=== PATIENT | female | born 1950 | race Caucasian/White ===

== ENCOUNTER 2021-03-30 15:02 | Emergency (ER) | payer MEDICARE, MEDICAID ==
--- NOTE | 2021-03-30 15:37 | EDM.PDOC ---
ED HPI GENERAL MEDICAL PROBLEM - General Chief Complaint: Neurological Problem Stated Complaint: FELL Time Seen by Provider: 03/30/21 15:37 Source of Information: Reports: Patient, EMS, Alf Records History Limitations: Reports: Altered Mental Status - History of Present Illness INITIAL COMMENTS - FREE TEXT/NARRATIVE: Nathalie, 71-year-old female, presents via [place] ambulance from the [facility] She is a resident of the [facility] in [facility] and experienced a fall striking her right forehead this morning. Laceration was sustained and she was initially Steri-Stripped and was planned to be seen at the [facility]. For some reason she was then transferred via [facility] service to the [facility] in [place] for evaluation. While she was there she had an episode of altered sensorium/unresponsiveness and it was decided that she needed to be sent to the emergency department for further work-up and care. When she arrived here she was conversive, overall friendly although somewhat hesitant to any of my suggestions and/or comments for testing and evaluation. She denies any other specific issues other than the fall striking her head being of a new circumstance. Onset: Today - Related Data Allergies Allergy/AdvReac Type Severity Reaction Status Date / Time acetaminophen Allergy Cannot Verified 03/30/21 15:47 [From Juan] Remember codeine Allergy Cannot Verified 03/30/21 15:47 Remember morphine Allergy Cannot Verified 03/30/21 15:47 Remember Penicillins Allergy Cannot Verified 03/30/21 15:47 Remember propoxyphene Allergy Cannot Verified 03/30/21 15:47 [From Juan] Remember Home Meds: Home Meds Acetaminophen [Pain Relief] 500 mg PO BID 03/30/21 [History] Albuterol Sulfate [Albuterol Sulfate HFA] 2 puff INH Q6H PRN 03/30/21 [History] Aspirin [Aspirin EC] 81 mg PO DAILY 03/30/21 [History] Benzonatate [Tessalon Perle] 100 mg PO TID PRN 03/30/21 [History] Biotin 10 mg PO DAILY 03/30/21 [History] Bisacodyl [Gentle Laxative] 10 mg RECTAL DAILY PRN 03/30/21 [History] Calcium Carbonate/Vitamin D3 [Calcium Carbonate/Vitamin D 600 MG-200 Unit] 1 tab PO QAM 03/30/21 [History] ClonazePAM [KlonoPIN] 0.5 mg PO TID 03/30/21 [History] DULoxetine [Cymbalta] 60 mg PO BID 03/30/21 [History] Dextran 70/Hypromellose [Artificial Tears] 1 drop EYEBOTH QID PRN 03/30/21 [History] Diclofenac Sodium [Voltaren 1% Gel] 2 gm TOP QID PRN 03/30/21 [History] Divalproex Sodium [Depakote ER] 1,000 mg PO BEDTIME 03/30/21 [History] Fluticasone Propionate [Flonase] 2 sprays NASBOTH DAILY 03/30/21 [History] Gabapentin [Neurontin] 600 mg PO BID 03/30/21 [History] Lactulose [Chronulac] 30 ml PO DAILY 03/30/21 [History] Loratadine [Claritin] 10 mg PO DAILY PRN 03/30/21 [History] Magnesium Hydroxide [Milk of Magnesia] 30 ml PO DAILY PRN 03/30/21 [History] Melatonin 10 mg PO BEDTIME 03/30/21 [History] Multivitamin 1 tab PO DAILY 03/30/21 [History] OLANZapine [ZyPREXA] 10 mg PO BID 03/30/21 [History] Paliperidone Palmitate [Invega Sustenna] 117 mg IM ASDIRECTED 03/30/21 [History] Paliperidone [Invega] 3 mg PO DAILY 03/30/21 [History] Pantoprazole Sodium [Protonix] 40 mg PO DAILY 03/30/21 [History] Potassium Chloride [Klor-Con 10] 10 meq PO DAILY 03/30/21 [History] Simvastatin [Zocor] 20 mg PO BEDTIME 03/30/21 [History] Sodium Chloride 2 gm PO BID 03/30/21 [History] polyethylene glycoL 3350 [MiraLAX] 17 gm PO DAILY PRN 03/30/21 [History] Past Medical History Psychiatric History: Reports: Other (See Below) (Please see paperwork provided as no extensive history is available from her.) - Past Surgical History Head Surgeries/Procedures: Reports: Craniotomy, Other (See Below) (buur hole) Social & Family History - Family History Family Medical History: No Pertinent Family History ED ROS GENERAL - Review of Systems Review Of Systems: Unable To Obtain Reason Not Obtained: Unable to verify accuracy from her secondary of her psychiatric s ED EXAM, GENERAL - Physical Exam Exam: See Below Free Text/Narrative:: Alert to surroundings, not fully sure as to why she is in the hospital. HEENT shows a laceration 3 cm to the right upper eyebrow that has been Steri- Stripped with no active bleeding/mild oozing with positioning. PERRLA no icterus no injection. EOM intact. Nondilated funduscopy is benign for any detachments or hemorrhage. She has ceruminosis bilateral which she told me before I even looked "full of wax" She has pink moist mucous membranes. Her neck is soft supple there is no tenderness she has limited range of motion secondary of kyphosis and age but denies any tenderness to palpation or to motion. I do not appreciate any bruit. Breath sounds are somewhat diminished. Cardiac is S1 is 2 there is a soft grade 1 systolic murmur best heard at the base. Abdomen is soft bowel sounds present she has mild superficial tenderness in the left lower quadrant with no obvious injury or redness. There is no pelvic tenderness. She is able to move her lower extremities with no difficulty skin is warm and dry capillary refill 3 seconds. Course - Vital Signs Last Recorded V/S: Last Vital Signs Temp 98.3 F 03/30/21 15:36 Pulse 91 03/30/21 15:36 Resp 18 03/30/21 15:36 BP 127/68 03/30/21 15:36 Pulse Ox 93 L 03/30/21 15:36 - Orders/Labs/Meds Labs: Laboratory Tests 03/30/21 03/30/21 03/30/21 Range/Units 14:53 14:53 17:04 WBC 8.57 (5.00-10.00) 10^3/uL RBC 4.34 (3.80-5.50) 10^6/uL Hgb 13.0 (12.0-16.0) g/dL Hct 39.3 (37.0-47.0) % MCV 90.6 (82.0-92.0) fL MCH 30.0 (27.0-31.0) pg MCHC 33.1 (32.0-36.0) g/dL RDW 13.1 (11.5-14.5) % Plt Count 300 (150-400) 10^3/uL MPV 10.2 (7.4-10.4) fL Immature Gran % (Auto) 0.4 (0.0-5.0) % Neut % (Auto) 70.7 H (50.0-70.0) % Lymph % (Auto) 17.2 L (20.0-40.0) % Preston % (Auto) 11.3 H (2.0-8.0) % Eos % (Auto) 0.0 L (1.0-3.0) % Baso % (Auto) 0.4 (0.0-1.0) % Neut # (Auto) 6.07 (2.50-7.00) 10^3/uL Lymph # (Auto) 1.47 (1.00-4.00) 10^3/uL Preston # (Auto) 0.97 H (0.10-0.80) 10^3/uL Eos # (Auto) 0.00 L (0.10-0.30) 10^3/uL Baso # (Auto) 0.03 (0.00-0.10) 10^3/uL Immature Gran # (Auto) 0.03 (0.00-0.50) 10^3/uL Sodium 136 (136-145) mmol/L Potassium 4.1 (3.5-5.1) mmol/L Chloride 100 (98-107) mmol/L Carbon Dioxide 25.9 (21.0-32.0) mmol/L Anion Gap 14.2 (5-15) mmol/L BUN 13 (7-18) mg/dL Creatinine 0.64 (0.51-1.17) mg/dL Est Cr Clr Drug Dosing 74.38 mL/min Estimated GFR (MDRD) > 60 mL/min Glucose 141 H (70-140) mg/dL Calcium 8.6 L (8.7-10.3) mg/dL Total Bilirubin 0.2 (0.2-1.0) mg/dL AST 25 (15-37) U/L ALT 28 (14-63) U/L Alkaline Phosphatase 78 (46-116) U/L Total Protein 7.0 (6.4-8.2) g/dL Albumin 3.07 L (3.40-5.00) g/dL Specimen Type Urincc Urine Color Yellow (YELLOW) Urine Appearance Clear (CLEAR) Urine pH 7.5 (5.0-9.0) Ur Specific Willard 1.020 (1.005-1.030) Urine Protein Negative (NEGATIVE) mg/dL Urine Glucose (UA) Negative (NEGATIVE) mg/dL Urine Ketones Negative (NEGATIVE) mg/dL Urine Occult Blood Trace-intact H (NEGATIVE) Urine Nitrite Negative (NEGATIVE) Urine Bilirubin Negative (NEGATIVE) Urine Urobilinogen 0.2 (0.2-1.0) E.U./dL Ur Leukocyte Esterase Trace H (NEGATIVE) Urine RBC 5-10 H (0-5) /HPF Urine WBC 0-5 (0-5) /HPF Ur Epithelial Cells Rare /LPF Urine Bacteria Rare (NONE TO FEW) /HPF Meds: Medications Discontinued Medications Generic Name Dose Route Start Last Admin Trade Name Freq PRN Reason Stop Dose Admin Acetaminophen 1,000 mg 03/30/21 17:30 03/30/21 17:33 Acetaminophen 500 Mg Tab PO 1,000 mg ONETIME JAYSHREE Administration Lidocaine/Epinephrine 20 ml 03/30/21 18:00 03/30/21 18:00 Lidocaine 2% With Epinephrine 1:200,000 20 Ml Sdv INFILT 03/30/21 18:01 5 ml ONETIME ONE Administration Departure - Departure Time of Disposition: 18:26 Disposition: DC/Tfer to SNF 03 Condition: Fair Clinical Impression: Laceration - Discharge Information *PRESCRIPTION DRUG MONITORING PROGRAM REVIEWED*: Not Applicable *COPY OF PRESCRIPTION DRUG MONITORING REPORT IN PATIENT RADU: Not Applicable Instructions: Laceration Care, Adult, [id number] Referrals: Raven Alcantar MD [Primary Care Provider] - Forms: ED Department Discharge Additional Instructions: Suture removal in 7 days. Keep clean and dry, change dressing daily. Neuro checks 2 hours x 4 recheck as needed. Sepsis Event Note (ED) - Focused Exam Vital Signs: Vital Signs Temp Pulse Resp BP Pulse Ox 03/30/21 15:36 98.3 F 91 18 127/68 93 L - Problem List & Annotations (1) Laceration SNOMED Code(s): 561179470 Code(s): WAW0958 - Status: Acute (2) Fall SNOMED Code(s): 0702717, 094657901 Code(s): W19.XXXA - UNSPECIFIED FALL, INITIAL ENCOUNTER Status: Acute Priority: High Qualifiers: Encounter type: initial encounter Qualified Code(s): W19.XXXA - Unspecified fall, initial encounter (3) Chronic focal neurological deficit SNOMED Code(s): 485374112 Code(s): R29.818 - OTHER SYMPTOMS AND SIGNS INVOLVING THE NERVOUS SYSTEM Status: Chronic Priority: Medium - Problem List Review Problem List Initiated/Reviewed/Updated: Yes - Assessment/Plan Plan: Suture removal in 7 days. Keep clean and dry, change dressing daily. Neuro checks 2 hours x 4 recheck as needed.
[2021-03-30 16:22] LABS: ANION GAP 14.2 mmol/L (5-15); CHLORIDE,CL 100 mmol/L (98-107); SODIUM,NA 136 mmol/L (136-145)
--- NOTE | 2021-03-30 16:25 | CT ---
[id number] CT/CT Head WO IV EXAM: CT Head WO IV CLINICAL DATA: FALL/HEAD LACERATION. COMPARISON STUDY: None FINDINGS: Right-sided craniotomy defect. Encephalomalacia in the underlying adjacent frontotemporal region. Addition there is encephalomalacia in the anterior left frontal lobe adjacent to a small nathaniel hole defect in the calvarium. Findings are superimposed on diffuse bilateral symmetric parenchymal atrophy as well as white matter gliosis. Findings are nonspecific but commonly seen as sequela of chronic small vessel disease. Soft tissue laceration over the right frontal/supraorbital region. No underlying acute calvarial fracture. IMPRESSION: Right frontal scalp laceration without underlying calvarial fracture or acute intracranial hemorrhage. Multiple chronic findings are described above. Alfredo Ayala MD 03/30/21 [id number] Thank you for allowing us to participate in the care of your patient.
[2021-03-30] MEDS: Acetaminophen 500 MG Tab PO SCH (17:33)
[2021-03-30] MEDS: Lidocaine 2% with EPINEPHrine 1:200,000 20 ML SDV INFILT ONE (18:00)
== END 2021-03-30 18:54 ==
LOC: KA.ED 15:02
DX: S01.111A Laceration without foreign body of right eyelid and periocular area, initial encounter (principal); Z79.82 Long term (current) use of aspirin; Z88.0 Allergy status to penicillin; Z88.5 Allergy status to narcotic agent; Z88.6 Allergy status to analgesic agent; W18.09XA Striking against other object with subsequent fall, initial encounter
CPT/HCPCS: 36415; 70450; 80053; 81001; 85025; 99283; 99285-25; A9270-GY

== ENCOUNTER 2024-07-14 03:43 | Emergency (ER) | payer MEDICARE, MEDICAID ==
[2024-07-14] MEDS: Albuterol/Ipratropium 3.0-0.5 MG/3 ML Neb Soln NEB ONE (04:26)
== END 2024-07-14 08:20 ==
LOC: KA.ED 03:43
DX: J44.1 Chronic obstructive pulmonary disease with (acute) exacerbation (principal); E78.00 Pure hypercholesterolemia, unspecified; Z88.5 Allergy status to narcotic agent; Z88.8 Allergy status to other drugs, medicaments and biological substances; Z79.82 Long term (current) use of aspirin; Z79.899 Other long term (current) drug therapy
CPT/HCPCS: 71045; 94640; 99284; J7620-GY